=== PATIENT | female | born 1995 | race Caucasian/White ===

== ENCOUNTER 2022-02-18 20:52 | Emergency (ER) | payer SELFPAY ==
[~2022-02-18] VITALS: Ht 167.6 cm; Wt 65.0 kg
== END 2022-02-18 21:00 | disposition left against medical advice (07) ==
LOC: ER 20:52
DX: R56.9 Unspecified convulsions (principal); Z53.21 Procedure and treatment not carried out due to patient leaving prior to being seen by health care provider